=== PATIENT | male | born 1985 | race African-American/Black ===

== ENCOUNTER 2020-08-03 10:57 | Outpatient (REF) | payer MEDICAID, SELFPAY | END 2020-08-03 10:58 | disposition home or self-care (01) | LOC: HO.LAB 10:57 | PROVIDERS: Visit Provider Internal Medicine | DX: Z20.828 Contact with and (suspected) exposure to other viral communicable diseases (principal) | CPT/HCPCS: C9803; U0003 ==

== ENCOUNTER 2021-06-12 16:02 | Outpatient (REF) | payer MEDICAID, SELFPAY ==
--- NOTE | ~2021-06-12 | XR_ITS ---
EXAMINATION: XR SHOULDER, RIGHT CLINICAL INFORMATION: Pain in right shoulder. COMPARISON: None TECHNIQUE: AP external rotation, Grashey, scapular Y, and axillary views of the right shoulder. FINDINGS: The bones and soft tissues are normal. No fracture. Glenohumeral and acromioclavicular alignment is anatomic with normal joint space. No abnormal soft tissue calcifications. XR/XR shoulder RT min 2V IMPRESSION: Normal right shoulder exam.
== END 2021-06-12 16:03 | disposition home or self-care (01) ==
LOC: HO.XRAY 16:02
PROVIDERS: Absent Provider Internal Medicine; PCP Internal Medicine; Visit Provider Emergency Medicine
DX: M25.511 Pain in right shoulder (principal)
CPT/HCPCS: 73030

== ENCOUNTER 2023-02-09 15:09 | Outpatient (REF) | payer MEDICAID, SELFPAY ==
--- NOTE | ~2023-02-09 | XR_ITS ---
EXAMINATION: XR LUMBOSACRAL SPINE CLINICAL INFORMATION: Fall COMPARISON: None available. TECHNIQUE: Three views of the lumbosacral spine. FINDINGS: Mild curvature of the lower lumbar spine to the right. Bone alignment is otherwise normal. No fracture or dislocation. Normal disc spaces. Normal paraspinal soft tissues. XR/XR lumbar spine 2-3V IMPRESSION: No fracture is seen. Mild curvature of the lower lumbar spine to the right.
== END 2023-02-09 15:10 | disposition home or self-care (01) ==
LOC: HO.HHCX 15:09
PROVIDERS: Visit Provider Emergency Medicine
DX: M54.50 Low back pain, unspecified (principal); M79.604 Pain in right leg; M79.605 Pain in left leg
CPT/HCPCS: 72100